=== PATIENT | male | born 1975 | race Caucasian/White ===

== ENCOUNTER 2019-05-12 17:18 | Emergency (ER) | payer MEDICAID ==
[~2019-05-12] VITALS: Ht 170.2 cm; Wt 79.8 kg
[2019-05-12 17:27] VITALS: Ht 170.2 cm; Wt 79.8 kg
[2019-05-12 21:19] VITALS: BP 138/91
== END 2019-05-12 21:19 | disposition home or self-care (01) ==
LOC: ED 17:18
DX: L02.214 Cutaneous abscess of groin (principal); R51 Headache
CPT/HCPCS: 90715; J2001

== ENCOUNTER 2019-05-16 11:08 | Emergency (ER) | payer MEDICAID ==
[~2019-05-16] VITALS: Ht 167.6 cm; Wt 80.3 kg
[2019-05-16 11:19] VITALS: Ht 167.6 cm; Wt 80.3 kg
[2019-05-16 12:00] VITALS: BP 140/75
== END 2019-05-16 12:00 | disposition home or self-care (01) ==
LOC: ED 11:08
DX: L02.214 Cutaneous abscess of groin (principal); Z48.01 Encounter for change or removal of surgical wound dressing